=== PATIENT | male | born 1990 | race Caucasian/White ===

== ENCOUNTER 2021-05-31 22:24 | Emergency (ER) | payer MEDICAID ==
[~2021-05-31] VITALS: Ht 167.6 cm; Wt 72.7 kg
[2021-05-31 22:47] VITALS: BP 135/78
[2021-05-31] MEDS ORDERED: PERTUSS(ACELL),DIPH,TET VAC/PF 0.5 ML SYRINGE IM. ONE (23:00)
== END 2021-06-01 03:21 | disposition home or self-care (01) ==
LOC: EMS 22:24
DX: S01.01XA Laceration without foreign body of scalp, initial encounter (principal); F17.210 Nicotine dependence, cigarettes, uncomplicated; Y04.0XXA Assault by unarmed brawl or fight, initial encounter; Y93.89 Activity, other specified; Y92.89 Other specified places as the place of occurrence of the external cause; Y99.8 Other external cause status
CPT/HCPCS: 12004; 70450; 72125; 90471; 90715; 99284

== ENCOUNTER 2021-06-10 15:14 | Emergency (ER) | payer MEDICAID ==
[~2021-06-10] VITALS: Ht 167.6 cm; Wt 72.5 kg
[2021-06-10 15:18] VITALS: BP 141/83
== END 2021-06-10 16:55 | disposition home or self-care (01) ==
LOC: EMS 15:18
DX: S01.01XD Laceration without foreign body of scalp, subsequent encounter (principal); F17.210 Nicotine dependence, cigarettes, uncomplicated; X58.XXXD Exposure to other specified factors, subsequent encounter
CPT/HCPCS: 99281; Z7502